=== PATIENT | male | born 1995 | race Caucasian/White ===

== ENCOUNTER 2017-01-14 16:08 | Emergency (ER) | payer OTHER ==
[~2017-01-14] VITALS: Ht 180.3 cm; Wt 72.6 kg
[2017-01-14 17:24] VITALS: BP 121/84
== END 2017-01-14 17:24 | disposition home or self-care (01) ==
LOC: ED 16:08
DX: R50.9 Fever, unspecified (principal); R11.10 Vomiting, unspecified; R19.7 Diarrhea, unspecified; R05 Cough; M79.1 Myalgia; R09.81 Nasal congestion; R51 Headache; Z79.1 Long term (current) use of non-steroidal anti-inflammatories (NSAID)